=== PATIENT | female | born 1980 | race Caucasian/White ===

== ENCOUNTER 2018-05-02 14:00 | Emergency (ER) | payer OTHER ==
[2018-05-02 14:20] VITALS: BP 112/59
--- NOTE | 2018-05-02 14:59 | UC ---
"Dental HPI - HPI Summary HPI Summary: Patient presents to urgent care reporting continued pain on her left lower gum at the site where she had a tooth extracted. Patient states it was instructed on 03/28. Patient states she was given a prescription for clindamycin for 10 days. Patient states she missed a couple doses and finished this prescription around April 15. Patient states she has ongoing discomfort. Patient states she's been pressure with toothbrush that seems irritated make it worse although temporarily feels better. Patient denies fevers or chills. Patient denies pain in her ear. Patient states she has difficulty chewing but denies any temperature sensitivity. Patient to go back to her dentist on April 10 as well as on the . Patient states she had been given a prescription for Vicodin. Patient was then given Tylenol with codeine. Patient states mother seemed to help. Patient's been taking ibuprofen, 4 mg, every 6-8 hours. Patient states that helped short-term but then wears off. Patient has not applied ice or heat to her face. Patient states she would like to go to a different dentist as she isn't happy with the dental care she received. Pt's medications reviewed this visit. - History of Current Complaint Chief Complaint: UCDentalProblem Stated Complaint: DENTAL-PAIN ON LEFT SIDE OF FACE Time Seen by Provider: 05/02/18 14:51 Hx Obtained From: Patient, Other: - Istop Leeann Wilson | Reference #: [id number] Hx Last Menstrual Period: 04/04/18 ?: No Onset/Duration: Lasting Weeks - 4 Pain Intensity: 6 Alleviating Factor(s): OTC Meds - Motrin - Allergies/Home Medications Allergies/Adverse Reactions: Allergies Allergy/AdvReac Type Severity Reaction Status Date / Time cephalexin [From Keflex] Allergy Severe chest pain Verified 05/02/18 14:21 Penicillins Allergy Intermediate Hives Verified 05/02/18 14:21 PMH/Surg Hx/FS Hx/Imm Hx Previously Healthy: Yes - Surgical History Surgical History: Yes Surgery Procedure, Year, and Place: tonsillectomy 1995. uterine polyps. appendectomy 2002 - Family History Known Family History: Positive: Non-Contributory - Social History Occupation: Employed Full-time Lives: With Family Alcohol Use: Occasionally Substance Use Type: None Smoking Status (MU): Heavy Every Day Tobacco Smoker Type: Cigarettes Amount Used/How Often: 1/2 ppd Length of Time of Smoking/Using Tobacco: age 13 yo Household Exposure Type: Cigarettes Review of Systems All Other Systems Reviewed And Are Negative: Yes Constitutional: Positive: Negative ENT: Positive: Dental Pain Physical Exam - Summary Physical Exam Summary: Vital Signs Reviewed: Yes A+Ox3, mild discomfort Eyes: Conjunctiva Clear, WALT. EOM intact and full ENT: Hearing grossly normal TM x 2 clear, mmoist, uvula midline, no exudate, no erythema #17 extracted tooth - pt with mild edema and discomfort to palpation, no fluctuance, mild discomfort left buccal gumline no drainage, no bleeding, No TMJ pain. No bleeding, no odor. Neck: Positive: Supple, no lymphadenopathy Respiratory: Positive: No respiratory distress, No accessory muscle use + CTA throughout no w/r Cardiovascular: RRR nl s1, s2 no m/r CBT <2 sec abd soft + BS nt/nd no guarding, no distension Musculoskeletal Exam: MORENO x 4 without difficulty Strength Intact, ROM Intact Neurological: Positive: Alert, + sensation throughout Psychological: Positive: Normal Response To Family Skin: Positive: no rash, no ecchymosis Triage Information Reviewed: Yes Vital Signs: Initial Vital Signs Temp 97.4 F 05/02/18 14:17 Pulse 63 05/02/18 14:17 Resp 17 05/02/18 14:17 BP 112/59 05/02/18 14:17 Pulse Ox 99 05/02/18 14:17 Dental Complaint Course/Dx - Course Course Of Treatment: Patient presents to urgent care with reports of ongoing pain on her left lower was in teeth. Patient states this was extracted on . Patient states she's had ongoing pain. Patient did complete a course of antibiotics by her dentist. Patient states she's been to her dentist for pain. Pt states narcotics did not help. Pt states she has increasing pain and swelling at gumline. Pt does not wish to return to her same dentist. On exam, pt with edema at gumline. Pt with mild erythema - no discharge, fluctucance + TTP. Will place on course of Clindamycin, chlorhexadine rinse. Recommend pt f/ u with dentist- list provided. I offered pt work note for today. Pt requested today and tomorrow. Wrote for today only. Pt recopmmended to walk in dental clinic if sx persist- states understanding - Differential Dx/Diagnosis Provider Diagnosis: Pain, dental Discharge - Sign-Out/Discharge Documenting (check all that apply): Patient Departure All imaging exams completed and their final reports reviewed: No Studies - Discharge Plan Condition: Stable Disposition: HOME Prescriptions: Chlorhexidine Gluconate [Peridex] 15 ml MM TID #200 mouthwash Clindamycin Cap(NF) [Clindamycin Cap 300 mg Cap(NF)] 300 mg PO TID #21 cap Patient Education Materials: Toothache (ED) Forms: *Work Release Referrals: Debbi Mauro NP [Primary Care Provider] - Additional Instructions: -- Okay to alternate ibuprofen (Advil, Motrin) 600mg and Tylenol 1000mg every 3 hours for pain. Take with food. Do NOT take for more than 4-5 days -Swish and spit with warm salt water 3-4 times a day -Take anitbiotics as prescribed until gone - it is recommended you take pro- biotics or eat yogurt daily with antibiotics -Stay well hydrated - frequent sips of cold fluids will be soothing to your throat (popsicles, jello, ice cream, ice water) - swish and spit with mouth rinse as prescribed -Contact a clinic or go to the walk in clinic from the list provided to you today. If you develop swelling inside your mouth, difficulty with chewing or any other concerns it is recommended you go to the emergency department for further management - Billing Disposition and Condition Condition: STABLE Disposition: Home"
== END 2018-05-02 15:31 | disposition home or self-care (01) ==
LOC: UCCORT 14:00
DX: K08.89 Other specified disorders of teeth and supporting structures (principal); Z88.0 Allergy status to penicillin; Z88.1 Allergy status to other antibiotic agents; F17.210 Nicotine dependence, cigarettes, uncomplicated
CPT/HCPCS: 99212; G0463